=== PATIENT | female | born 1985 | race American Indian/Alaskan Native ===

== ENCOUNTER 2016-09-27 05:47 | Outpatient (CLI) | payer MEDICAID ==
[2016-09-27 07:54] VITALS: BP 134/82
[2016-09-27] MEDS ORDERED: LACTATED RINGERS 500 ML IV ONE (08:00)
== END 2016-09-27 08:20 | disposition home or self-care (01) ==
LOC: TRG 05:47
PROVIDERS: ATTEND Obstetrics & Gynecology
DX: O47.03 False labor before 37 completed weeks of gestation, third trimester (principal); Z3A.36 36 weeks gestation of pregnancy
CPT/HCPCS: 59025

== ENCOUNTER 2016-10-30 22:57 | Inpatient (IN) | payer MEDICAID ==
[2016-10-30] MEDS ORDERED: AMMONIA INHALANT IH ONE (23:11)
[2016-10-30] MEDS ORDERED: TUCKS PAD TP PRN (23:35)
[2016-10-30] MEDS ORDERED: TYLENOL PO PRN (23:35)
[2016-10-30] MEDS ORDERED: DERMOPLAST TP PRN (23:35)
[2016-10-30] MEDS ORDERED: ZOFRAN IV PRN (23:35)
[2016-10-30] MEDS ORDERED: MILK OF MAGNESIA PO PRN (23:35)
[2016-10-30] MEDS ORDERED: PHENERGAN PO PRN (23:35)
[2016-10-30] MEDS ORDERED: NORCO 5/325 PO PRN (23:35)
[2016-10-30] MEDS ORDERED: BENADRYL PO PRN (23:35)
[2016-10-30] MEDS ORDERED: LANSINOH TP PRN (23:35)
[2016-10-30] MEDS ORDERED: DULCOLAX PR PRN (23:35)
[2016-10-30] MEDS ORDERED: SODIUM CHLORIDE FLUSH SYRINGE 10 ML IV NR (23:45)
--- NOTE | 2016-10-30 23:50 | History and Physical Report ---
History of Present Illness Date of examination: 10/30/16 (pt brought in by EMS; delivered at home) Date of admission: 10/30/16 22:57 History of present illness: pt states she called 911 but before they arrived she delivered live born male EDC 10-24-16 Pt was receiving care with . 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 Past History - Obstetrical History Expected Date of Delivery: 10/24/16 Actual Gestation: 40 Week(s) 6 Day(s) : 4 Para: 4 (delivered at home) Number of Living Children: 4 Medications and Allergies Allergies Allergy/AdvReac Type Severity Reaction Status Date / Time No Known Allergies Allergy Unverified 09/27/16 07:38 Active Meds: Active Medications Acetaminophen (Tylenol) 650 mg PO Q4H PRN PRN Reason: Pain MILD(1-3)/Fever >100.5/ALBRECHT Acetaminophen/Hydrocodone Bitart ([place] 5/325) 2 each PO Q6H PRN PRN Reason: Pain, Moderate (4-6) Benzocaine/Menthol (Dermoplast) 1 spray TP PRN PRN PRN Reason: Episiotomy Pain Bisacodyl (Dulcolax) 10 mg AR BID PRN PRN Reason: Constipation Diphenhydramine HCl (Benadryl) 25 mg PO Q6H PRN PRN Reason: Itching Diphtheria/Tetanus/Acell Pertussis (Boostrix) 0.5 ml IM .ONCE ONE Stop: 10/31/16 23:36 Docusate Sodium (Colace) 100 mg PO BID JESS Ibuprofen (Motrin) 800 mg PO Q8H JESS Magnesium Hydroxide (Milk Of Magnesia) 30 ml PO HS PRN PRN Reason: Constipation Measles/Mumps/Rubella Vaccine Live (M-M-R Ii Vaccine) 0.5 ml SUB-Q .ONCE ONE Stop: 10/31/16 23:36 Methylergonovine Maleate (Methergine) 0.2 mg PO Q8HR JESS Stop: 10/31/16 22:01 Multi-Ingredient Ointment (Lansinoh) 1 applic TP PRN PRN PRN Reason: Sore Nipples Multivitamins/Iron/Calcium ( Vitamin) 1 each PO QDAY JESS Ondansetron HCl (Zofran) 4 mg IV Q8H PRN PRN Reason: Nausea And Vomiting Promethazine HCl (Phenergan) 25 mg PO Q6H PRN PRN Reason: Nausea And Vomiting Sodium Chloride (Sodium Chloride Flush Syringe 10 Ml) 10 ml IV PRN NR Valacyclovir HCl (Valtrex) 1,000 mg PO QDAY JESS Witch Tiki/Glycerin (Tucks Pad) 1 each TP PRN PRN PRN Reason: Hemorrhoid/cleansing/soothing - Physical Exam Breasts: Positive: deferred Cardiovascular: Regular rate, Normal S1, Normal S2 Lungs: Positive: Normal air movement Abdomen: Positive: normal appearance, soft, normal bowel sounds. Negative: distention, tenderness Genitourinary (Female): Positive: normal external genitalia, normal perenium Vulva: both: normal Vagina: Positive: normal moisture. Negative: discharge Cervix: Negative: lesion, discharge Uterus: Positive: normal size, normal contour Adnexa: both: normal Anus/Rectum: Positive: normal perianal skin, heme negative. Negative: rectal mass, hemorrhoids Extremities: Deep Tendon Reflex Grade: Normal +2 Results All other labs normal. Assessment and Plan Arrived via EMS delivered at home placenta intact Male to warmer Please see delivery note
--- NOTE | 2016-10-30 23:55 | Procedure Note ---
OB Delivery Note - Delivery Date of Delivery: 10/30/16 Station Installation Supervisor: SLY HAINES (for placenta) Estimated blood loss: other (600cc) - Vaginal Delivery placenta: spontaneous Episiotomy: none Delivery laceration: none Anesthesia: none Delivery comments: per pt hx delivered live born male at home with husbands assistance. EMS arrived to there home shortly after the Arrived with placenta intact, Cord blood was drawn and sent. Pt emptied her bladder and placenta delivered complete and intact. Several large clots delivered prior to placenta delivery and after. Pitocin IM given. Pt OOB to shower, c/o feeling weak returned to bed. PO fluids. Pitocin IVFs infusing. All labs drawn and sent Mom and baby remain LDR stable - Infant A at 1 minute: 8 at 5 minutes: 9 (assigned per EMS) Infant Gender: Male (wgt 9-11)
[2016-10-31 00:20] LABS: Urine Drugs of Abuse Note Disclamer
[2016-10-31 00:50] LABS: HIV-1 Antigen p24 Non React (Non React); HIVR-1/2 Ab Non React (Non React)
[2016-10-31] MEDS ORDERED: PITOCin/NS 20 UNIT/1000ML DRIP 20 UNITS/1,000 ML BAG IV SCH ×2 (02:19→03:00)
[2016-10-31] MEDS ORDERED: MOTRIN PO SCH ×2 (03:00)
[2016-10-31 04:47] LABS: Basophils % (Auto) 0.2 % (0.0-1.8); Eosinophils % (Auto) 0.2 % (0.0-4.3); Hematocrit 32.7 % (30.3-42.9); Hemoglobin 10.7 gm/dl (10.1-14.3); Mean Corpuscular HGB Conc 33 % (30-34); Mean Corpuscular Hemoglobin 27 pg (28-32); Mean Corpuscular Volume 82 fl (79-97); Platelet Count 241 K/mm3 (140-440); Red Blood Count 3.97 M/mm3 (3.65-5.03); Red Cell Distribution Width 17.9 % (13.2-15.2); White Blood Count 15.8 K/mm3 (4.5-11.0)
[2016-10-31] MEDS ORDERED: M-M-R II VACCINE SUB-Q ONE (06:05)
[2016-10-31] MEDS ORDERED: BOOSTRIX IM ONE (06:05)
[2016-10-31] MEDS: METHERGINE PO SCH ×3 (06:09→22:16)
--- NOTE | 2016-10-31 08:09 | Progress Note ---
Assessment and Plan Patient doing well this morning, w/o complaints. Lochia scant, VSSAF, post delivery H&H to be drawn @ 1000. Patient currently denies any s/s anemia while ambulating but will continue to monitor closely. Continue pathway. - Patient Problems (1) Encounter for care after unplanned out of hospital delivery Current Visit: Yes Status: Acute Subjective - Subjective Date of service: 10/31/16 Principal diagnosis: day #1 s/p home delivery Patient reports: appetite normal, voiding normally, pain well controlled, ambulating normally, no dizzy ambulation, no nauseated [place]: doing well, bottle feeding (pt reports breast and bottle feeding infant ) Objective - Vital Signs Latest vital signs: Vital Signs Temp Pulse Pulse Resp BP BP 10/31/16 06:34 120/70 10/31/16 04:15 98.4 F 83 20 122/60 10/31/16 02:00 98.1 F 82 18 120/80 10/31/16 01:15 88 129/77 10/31/16 01:00 74 126/66 10/31/16 00:46 86 126/60 10/31/16 00:30 81 110/76 10/31/16 00:15 75 116/70 10/31/16 00:00 85 124/76 10/30/16 23:55 97.0 F L Intake and Output 10/30/16 10/31/16 10/31/16 22:59 06:59 14:59 Intake Total 268 Output Total 1600 Balance -1332 Intake: Oral 16 Other 252 Output: Urine 1600 Indwelling Catheter 500 Void 1100 Other: Intake, Other Source Saline Solution Total, Intake Amount 268 Total, Output Amount 400 # Voids Indwelling Catheter 2 Void 1 Weight 95.254 kg Estimated Blood Loss 600 - Exam Breasts: Present: normal, Cardiovascular: Present: Regular rate Lungs: Present: Clear to auscultation, Normal air movement Abdomen: Present: normal appearance, soft Vulva: both: normal Uterus: Present: normal, firm, fundal height at umbilicus Extremities: Present: normal Deep Tendon Reflex Grade: Normal +2 - Labs Labs: Abnormal lab results 10/31/16 Range/Units 03:58 WBC 15.8 H (4.5-11.0) K/mm3 MCH 27 L (28-32) pg RDW 17.9 H (13.2-15.2) % Lymph % (Auto) 10.2 L (13.4-35.0) % Lake # 1.0 H (0.0-0.8) K/mm3 Seg Neutrophils % 83.4 H (40.0-70.0) % Seg Neutrophils # 13.1 H (1.8-7.7) K/mm3
[2016-10-31 10:39] LABS: Hematocrit 30.1 % (30.3-42.9)
[2016-10-31] MEDS: VALTREX PO SCH (10:45)
[2016-10-31] MEDS: PRENATAL VITAMIN PO SCH (10:47)
[2016-10-31] MEDS: MOTRIN PO SCH ×2 (10:48→18:03)
[2016-10-31] MEDS: COLACE PO SCH ×2 (18:03→22:16)
[2016-11-01] MEDS: MOTRIN PO SCH ×3 (02:18→17:24)
[2016-11-01] MEDS ORDERED: BOOSTRIX IM ONE (06:00)
--- NOTE | 2016-11-01 06:29 | Discharge Summary ---
Providers - Providers Date of Admission: 10/30/16 22:57 Date of discharge: 11/01/16 (pt agrees with d/c) Attending physician: EFREM BOSS Primary care physician: EFREM BOSS Hospitalization Reason for admission: other (pt delivered at home; placenta delivered here) Delivery: Episiotomy: none Laceration: none Incision: normal Other procedures: none complications: none Discharge diagnosis: IUP at term delivered baby: male Hospital course: uncomplicated vaginal delivery at home placenta delivered in L&D pt w/o complaints VSS FF below umb Lochia small perineum intact H&H 05/07 stable No anemia Doing well s/p vag del P: d/c home today with instructions. Pt states she will f/u with her OB of record Condition at discharge: Good Disposition: DISCHARGED TO HOME OR SELFCARE - Discharge Diagnoses (1) Encounter for care after unplanned out of hospital delivery Status: Acute Comment: f/u with OB in 4-6 weeks Plan - Discharge Medications Prescriptions: Ibuprofen [Motrin 800 MG tab] 800 mg PO TID PRN #30 tablet PRN Reason: Pain - Provider Discharge Summary Activity: routine, no sex for 6 weeks, no heavy lifting 4 weeks, no strenuous exercise Diet: routine Instructions: routine Additional instructions: [] Smoking cessation referral if applicable(refer to patient education folder for contact #) [] Refer to [facility] Booklet Call your doctor immediately for: * Fever > 100.5 * Heavy vaginal bleeding ( >1 pad per hour) * Severe persistent headache * Shortness of breath * Reddened, hot, painful area to leg or breast * Drainage or odor from incision. * Keep incision clean and dry at all times and follow doctor's instructions regarding bathing/showering - Follow up plan Follow up: EFREM BOSS MD [Primary Care Provider] - 6 Weeks (Please call your OB and f/u in 4-6 weeks. Take medication as prescribed)
[2016-11-01] MEDS: VALTREX PO SCH (09:45)
[2016-11-01] MEDS: PRENATAL VITAMIN PO SCH (09:45)
[2016-11-01] MEDS: COLACE PO SCH (09:45)
[2016-11-01] MEDS ORDERED: FLUARIX QUAD 2016-2017(36 MOS+) IM ONE (12:00)
[2016-11-01 23:58] VITALS: BP 140/86
== END 2016-11-01 23:00 | disposition home or self-care (01) | DRG 775 ==
LOC: LD 22:57 → OB 10-31 01:43
PROVIDERS: ADMIT Obstetrics & Gynecology; ATTEND Obstetrics & Gynecology
PROC: 10E0XZZ Delivery of Products of Conception, External Approach (ICD-10-PCS; principal; 2016-10-30)
DX: Z39.0 Encounter for care and examination of mother immediately after delivery (principal); Z37.0 Single live birth; Z3A.40 40 weeks gestation of pregnancy
CPT/HCPCS: 36415; 80307; 85014; 85018; 85025; 85660; 86706; 86762; 86803; 86850; 86900; 86901; 87806; 88307; 90471; 90472; 90686; 90715; 99211; A6250; G0463